=== PATIENT | male | born 2000 | race Caucasian/White ===

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

== ENCOUNTER → 2020-09-18 07:05 | Outpatient (CLI) | payer OTHER, SELFPAY ==
--- NOTE | ~2020-09-18 | XR_ITS ---
XR lumbar spine 2-3V DATE: 09/18/2020 07:24 INDICATION: Low back pain TECHNIQUE: AP, lateral, coned lateral lumbosacral views COMPARISON: None FINDINGS: The lumbar vertebrae are normally aligned. Included lower thoracic and lumbar pedicles are intact. No fracture or bone destruction. Lumbar levels sacral interspaces are well preserved. No spon dylolisthesis. Normal sacroiliac joints. IMPRESSION: Normal lumbar spine Reviewed, dictated and finalized at location A. SWITCHER IMPRESSION: Normal lumbar spine
--- NOTE | ~2020-09-18 | XR_ITS ---
XR knee RT 3V DATE: 09/18/2020 07:25 INDICATION: Right knee pain TECHNIQUE: Koppel and standing AP and lateral views COMPARISON: None FINDINGS: No fracture or dislocation or joint effusion. No periosteal reaction or bone destruction, r adiopaque intra-articular loose body or chondrocalcinosis. Joint spaces are well preserved. IMPRESSION: Normal examination Reviewed, dictated and finalized at location A. O SCRIPT WRITER IMPRESSION: Normal examination
== END ==
PROVIDERS: PCP Family Medicine; Visit Provider Physician Assistant
DX: M54.5 Low back pain (principal); R42 Dizziness and giddiness; R51.9 Headache, unspecified; M25.561 Pain in right knee
CPT/HCPCS: 72100; 73562

== ENCOUNTER 2020-11-23 08:35 | Outpatient (CLI) | payer OTHER, SELFPAY | END 2020-11-23 08:36 | disposition home or self-care (01) | LOC: ANHCOVIDVC 08:36 | PROVIDERS: PCP Family Medicine | DX: Z23 Encounter for immunization (principal) | CPT/HCPCS: 0001A; 91300 ==

== ENCOUNTER 2020-12-14 08:23 | Outpatient (CLI) | payer OTHER, SELFPAY | END 2020-12-14 08:24 | disposition home or self-care (01) | LOC: ANHCOVIDVC 08:24 | PROVIDERS: PCP Family Medicine | DX: Z23 Encounter for immunization (principal) | CPT/HCPCS: 0002A; 91300 ==

== ENCOUNTER 2021-02-09 09:02 | Outpatient (CLI) | payer OTHER, SELFPAY ==
[2021-02-09 09:22] LABS: Basophils Percent Auto 0.4 % (0.2-1.2); Eosinophils Absolute Auto 0.1 K/mm3 (0-0.3); Eosinophils Percent Auto 1.2 % (0-4.4); Hemoglobin 14.7 g/dL (14.0-18.0); Immature Granulocyte Absolute 0.01 K/mm3 (0.00-0.031); Immature Granulocyte Percent A 0.1 % (0-0.5); Lymphocytes Absolute Auto 2.58 K/mm3 (0.9-3.2); Lymphocytes Percent Auto 34.8 % (18.3-44.2); Mean Corpuscular HGB Conc 32.7 g/dl (32-36); Mean Corpuscular Hemoglobin 28.5 pg (26-34); Mean Corpuscular Volume 87.2 fl (80-100); Mean Platelet Volume 10.6 fl (7.4-10.4); Monocytes Absolute Auto 0.6 K/mm3 (0.1-0.6); Monocytes Percent Auto 8.1 % (2.6-8.5); Neutrophils Absolute Auto 4.1 K/mm3 (1.3-6.7); Neutrophils Percent Auto 55.4 % (45.5-73.1); Platelet Count Result 225 k/mm3 (150-375); Red Blood Count 5.16 M/mm3 (4.6-6.20); Red Cell Distribution Width 12.5 % (11.5-14.5); White Blood Count 7.4 K/mm3 (4.5-10.0)
[2021-02-09 09:34] LABS: Alanine Aminotransferase 25 U/L (4-50); Alkaline Phosphatase 69 U/L (38-126); Anion Gap 10 mmol/L (8-16); Aspartate Amino Transferase 33 U/L (17-59); Bilirubin,Total 0.6 mg/dL (0.2-1.3); Blood Urea Nitrogen 15 mg/dL (9-20); CRP < 0.5 mg/dL (<1.0); Calcium 9.9 mg/dL (8.4-10.2); Carbon Dioxide 27 mmol/L (22-30); Chloride 104 mmol/L (98-107); Cholesterol 158 mg/dL (0-200); Estimated Glomerular Filt Rate > 60; Glucose 96 mg/dL (75-110); HDL Direct 31 mg/dL; Potassium 4.1 mmol/L (3.4-5.0); Sodium 141 mmol/L (137-145); Triglycerides 122 mg/dL (<150)
[2021-02-09 09:43] LABS: LDL Cholesterol Direct 88 mg/dL
[2021-02-09 10:14] LABS: Erythrocyte Sedimentation Rate 11 mm/hr (0-20)
[2021-02-12 18:59] LABS: ANA Cascade Screen Negative (Negative)
== END 2021-02-09 09:03 | disposition home or self-care (01) ==
PROVIDERS: PCP Family Medicine; Visit Provider Physician Assistant
DX: R42 Dizziness and giddiness (principal); M54.5 Low back pain; R51.9 Headache, unspecified
CPT/HCPCS: 36415; 80053; 80061; 84443; 85025; 85652; 86038; 86140

== ENCOUNTER → 2021-07-27 10:10 | Outpatient (CLI) | payer OTHER, SELFPAY ==
--- NOTE | ~2021-07-27 | XR_ITS ---
EXAMINATION: XR hand LT min 3V EXAM DATE: 07/27/2021 10:57 INDICATION: S69.92XA - Unspecified injury of left wrist, hand and finger. Jamming injury ec ; pain and swelling at 5th digit, no previous fx or surgery. TECHNIQUE: Left hand frontal, lateral and oblique projections obtained and reviewed. There is no sara or study for comparison. FINDINGS: Left metacarpal bones are unremarkable. There is acute closed posttraumatic nondisplaced fracture at the left 5th middle phalangeal volar plate. This finding has been indicated, marked on examination for review, clinical correlation. No other suspicious findings. IMPRESSION: Left 5th middle phalangeal volar plate nondisplaced avulsion fracture. Reviewed, dictated and finalized at location A. TREASURER IMPRESSION: Left 5th middle phalangeal volar plate nondisplaced avulsion fract ure.
== END ==
PROVIDERS: PCP Family Medicine; Visit Provider Family Medicine
DX: S69.92XA Unspecified injury of left wrist, hand and finger(s), initial encounter (principal); S62.92XA Unspecified fracture of left hand, initial encounter for closed fracture
CPT/HCPCS: 73130

== ENCOUNTER → 2021-08-03 10:05 | Outpatient (CLI) | payer OTHER, SELFPAY ==
--- NOTE | ~2021-08-03 | XR_ITS ---
XR hand LT min 3V 08/03/2021 10:23 Indication: Left hand pain Procedure: 3 views left hand Comparison: 07/27/2021 Findings: There is a volar plate avulsion fracture involving the ventral base fifth middle phalanx. T here is anatomic alignment. No significant soft tissue abnormality. No foreign bodies. Impression: 1: Volar plate avulsion fracture ventral base left fifth middle phalanx. Reviewed, dictated and finalized at location A. SPORTATION MODELER Impression: 1: Volar plate avulsion fracture ventral base left fifth middle phalanx.
== END ==
PROVIDERS: PCP Family Medicine; Visit Provider Family Medicine
DX: S62.627A Displaced fracture of middle phalanx of left little finger, initial encounter for closed fracture (principal)
CPT/HCPCS: 73130

== ENCOUNTER 2022-10-25 07:54 | Outpatient (CLI) | payer OTHER, SELFPAY ==
[2022-10-25 08:14] LABS: Basophils Percent Auto 0.7 % (0.2-1.2); Eosinophils Absolute Auto 0.2 K/mm3 (0-0.3); Eosinophils Percent Auto 2.7 % (0-4.4); Hematocrit 41.5 % (42.0-52.0); Hemoglobin 14.3 g/dL (14.0-18.0); Immature Granulocyte Absolute 0.01 K/mm3 (0.00-0.031); Immature Granulocyte Percent A 0.2 % (0-0.5); Lymphocytes Absolute Auto 2.49 K/mm3 (0.9-3.2); Lymphocytes Percent Auto 41.4 % (18.3-44.2); Mean Corpuscular HGB Conc 34.5 g/dl (32-36); Mean Corpuscular Hemoglobin 30.4 pg (26-34); Mean Corpuscular Volume 88.3 fl (80-100); Mean Platelet Volume 10.5 fl (7.4-10.4); Monocytes Absolute Auto 0.6 K/mm3 (0.1-0.6); Monocytes Percent Auto 9.5 % (2.6-8.5); Neutrophils Absolute Auto 2.8 K/mm3 (1.3-6.7); Neutrophils Percent Auto 45.5 % (45.5-73.1); Platelet Count Result 214 k/mm3 (150-375); Red Cell Distribution Width 12.4 % (11.5-14.5)
[2022-10-25 08:31] LABS: Alanine Aminotransferase 19 U/L (6-50); Albumin Level 4.9 g/dL (3.5-5.1); Alkaline Phosphatase 66 U/L (38-126); Anion Gap 9 mmol/L (8-16); Aspartate Amino Transferase 25 U/L (17-59); Bilirubin,Total 0.5 mg/dL (0.2-1.3); Blood Urea Nitrogen 11 mg/dL (9-20); Calcium 9.4 mg/dL (8.4-10.2); Carbon Dioxide 27 mmol/L (22-30); Chloride 106 mmol/L (98-107); Estimated Glomerular Filt Rate > 60; Glucose 97 mg/dL (65-110); Potassium 4.4 mmol/L (3.4-5.0); Sodium 142 mmol/L (137-145)
[2022-10-25 08:52] LABS: Erythrocyte Sedimentation Rate 8 mm/hr (0-20)
[2022-10-25 09:23] LABS: Rheumatoid Factor < 8.6 IU/ML (<12)
[2022-10-25 09:43] LABS: Hemoglobin A1C 5.1 % (<5.7)
[2022-10-30 22:38] LABS: Anti Cyclic Citrullinated Pept <16 Units (<20)
[2022-10-31 09:06] LABS: HLA B27 Negative (Negative)
== END 2022-10-25 07:55 | disposition home or self-care (01) ==
PROVIDERS: PCP Family Medicine; Visit Provider Family Medicine
DX: R73.9 Hyperglycemia, unspecified (principal); Z83.3 Family history of diabetes mellitus; R53.83 Other fatigue; G89.29 Other chronic pain; M25.50 Pain in unspecified joint; M54.9 Dorsalgia, unspecified; R42 Dizziness and giddiness; M25.519 Pain in unspecified shoulder
CPT/HCPCS: 36415; 80053; 83036; 85025; 85652; 86038; 86200; 86430; 86812

== ENCOUNTER 2023-10-08 10:57 | Outpatient (CLI) | payer OTHER, SELFPAY ==
[2023-10-08 11:20] LABS: Basophils Absolute Auto 0.1 K/mm3 (0.0-0.1); Basophils Percent Auto 0.5 % (0.2-1.2); Eosinophils Absolute Auto 0.1 K/mm3 (0-0.3); Eosinophils Percent Auto 1.1 % (0-4.4); Hematocrit 44.9 % (42.0-52.0); Hemoglobin 14.4 g/dL (14.0-18.0); Immature Granulocyte Absolute 0.03 K/mm3 (0.00-0.031); Immature Granulocyte Percent A 0.3 % (0-0.5); Lymphocytes Absolute Auto 2.29 K/mm3 (0.9-3.2); Lymphocytes Percent Auto 23.6 % (18.3-44.2); Mean Corpuscular HGB Conc 32.1 g/dl (32-36); Mean Corpuscular Hemoglobin 28.6 pg (26-34); Mean Corpuscular Volume 89.1 fl (80-100); Mean Platelet Volume 9.5 fl (7.4-10.4); Monocytes Absolute Auto 0.8 K/mm3 (0.1-0.6); Monocytes Percent Auto 8.4 % (2.6-8.5); Neutrophils Absolute Auto 6.4 K/mm3 (1.3-6.7); Neutrophils Percent Auto 66.1 % (45.5-73.1); Platelet Count Result 283 k/mm3 (150-375); Red Blood Count 5.04 M/mm3 (4.6-6.20); White Blood Count 9.7 K/mm3 (4.5-10.0)
[2023-10-08 11:33] LABS: Alanine Aminotransferase 16 U/L (6-50); Albumin Level 4.8 g/dL (3.5-5.1); Alkaline Phosphatase 63 U/L (38-126); Anion Gap 10 mmol/L (8-16); Aspartate Amino Transferase 26 U/L (17-59); Bilirubin,Total 0.7 mg/dL (0.2-1.3); Blood Urea Nitrogen 7 mg/dL (9-20); Calcium 9.9 mg/dL (8.4-10.2); Carbon Dioxide 28 mmol/L (22-30); Chloride 102 mmol/L (98-107); Estimated Glomerular Filt Rate > 60; Glucose 73 mg/dL (65-110); Potassium 3.9 mmol/L (3.4-5.0); Sodium 140 mmol/L (137-145)
[2023-10-08 12:11] LABS: Erythrocyte Sedimentation Rate 19 mm/hr (0-20)
[2023-10-08 12:16] LABS: Iron 98 ug/dL (49-181)
[2023-10-08 12:26] LABS: Percent Iron Saturation 28 % (20-50)
[2023-10-08 12:56] LABS: Thyroid Stimulating Hormone Reflex 0.917 uIU/mL (0.465-4.68)
== END 2023-10-08 10:58 | disposition home or self-care (01) ==
LOC: ANHLAB 11:00
PROVIDERS: PCP Family Medicine; Visit Provider Family Medicine
DX: R53.83 Other fatigue (principal); M46.1 Sacroiliitis, not elsewhere classified; M25.50 Pain in unspecified joint; K92.1 Melena
CPT/HCPCS: 36415; 80053; 82728; 83540; 83550; 84443; 85025; 85652

== ENCOUNTER 2024-04-13 13:56 | Outpatient (CLI) | payer OTHER, SELFPAY ==
--- NOTE | ~2024-04-13 | XR_ITS ---
Clinical Indication: Lower respiratory infection PA and lateral views of the chest: Comparison: 12/08/2019 Findings: The lungs are clear, without evidence of focal consolidation or pleural effusion. Cardiome diastinal silhouette is within normal limits. Bones and soft tissues are unremarkable. Impression: Normal chest. Reviewed, dictated and finalized at [facility]. Impression: Normal chest.
== END 2024-04-13 13:57 ==
PROVIDERS: PCP Family Medicine; Visit Provider Family Medicine
DX: J22 Unspecified acute lower respiratory infection (principal)
CPT/HCPCS: 71046

== ENCOUNTER 2024-04-13 15:15 | Outpatient (CLI) | payer OTHER, SELFPAY ==
[2024-04-13 16:07] LABS: Influenza A QL RT-PCR Negative (Negative); Influenza B QL RT-PCR Negative (Negative); RSV RNA, RT-PCR Negative (Negative); SARS-CoV-2 RNA PCR Negative (Negative)
== END 2024-04-13 15:16 | disposition home or self-care (01) ==
LOC: ANHLAB 15:18
PROVIDERS: PCP Family Medicine; Visit Provider Family Medicine
DX: R05.9 Cough, unspecified (principal); Z20.822 Contact with and (suspected) exposure to COVID-19
CPT/HCPCS: 87637

== ENCOUNTER 2025-02-25 07:55 | Outpatient (CLI) | payer OTHER, SELFPAY ==
--- OUTSIDE RECORDS SUMMARY | 2025-02-25 07:58 | XMS_ITS | Clinical Summary ---
Author Organization [facility] Address [facility] [place] [address] Care Team Providers Care Home Health Provider Name Role Phone Ashanti Price MD Primary Care Provider [phone] Allergies No known active allergies Medications meloxicam (MOBIC) 15 mg tablet 1 Active SUMAtriptan (IMITREX) 100 mg tablet 0 Active loratadine (CLARITIN) 10 mg tablet Take 10 mg by mouth daily Active cyclobenzaprine (FLEXERIL) 10 mg tablet Take 10 mg by mouth 3 (three) times a day as needed for muscle spasms Active acetaminophen (TYLENOL) 500 mg tablet Take 500 mg by mouth every 6 (six) hours as needed for pain Active menthol 4 % gel Apply topically Active celecoxib (CeleBREX) 200 mg capsule 1 Active montelukast (SINGULAIR) 10 mg tablet 1 Active tiZANidine (ZANAFLEX) 4 mg tablet 1 Active ofloxacin (FLOXIN) 0.3 % otic solution 3 Active Active Problems Problem Noted Date Diagnosed Date Low back pain, non-specific 10/25/2020 Surgical History Surgery Date Site/Laterality Comments NO PAST SURGERIES FLUORO GUIDED ASPIRATION OR INJECTION LARGE JOINT BILATERAL 04/02/2021 Bilateral IR INJECTION ARTHROGRAM SI J OINT LEFT INCLUDES IMAGING GUIDANCE 06/18/2021 Left IR INJECTION ARTHROGRAM SI J OINT BILATERAL WITH GUIDANCE 04/07/2023 Bilateral Medical History Medical History Date Comments Asthma Migraine Family History Medical History Relation Name Comments Asthma Brother Diabetes Father Hypertension Father Hypertension Maternal Grandfather Hypothyroidism Maternal Grandfather Seizures Maternal Grandmother Hypertension Mother Migraines Mother Dementia Paternal Grandfather Diabetes Paternal Grandfather Hypertension Paternal Grandmother Asthma Sister Relation Name Status Comments Brother Father Maternal Grandfather Maternal Grandmother Mother Paternal Grandfather Paternal Grandmother Sister Social History Tobacco Use Types Packs/Day Years Used Date Smoking Tobacco: Never Smokeless Tobacco: Never Personal Safety Answer Date Recorded Getting School Help Needed Not on file 10/11 Sex and Gender Information Value Date Recorded Sex Assigned at Not on file Legal Sex Male 2:15 AM GYM INSTRUCTOR Gender Identity Male 03/28/2023 10:32 AM CDT Sexual Orientation Not on file Obstetrics History Last Filed Vital Signs Vital Sign Reading Time Taken Comments Blood Pressure 122/76 12/24/2020 4:32 PM CDT Pulse 93 10/25/2020 12:46 PM GYM INSTRUCTOR Temperature - - Respiratory Rate - - Oxygen Saturation - - Inhaled Oxygen Concentration - - Weight 90.7 kg (200 lb) 10/25/2020 12:46 PM GYM INSTRUCTOR Height 182.9 cm (6') 10/25/2020 12:46 PM GYM INSTRUCTOR Body Mass Index 27.12 10/25/2020 12:46 PM GYM INSTRUCTOR Plan of Treatment Health Maintenance Due Date Last Done Comments Depression Screening 2000 Hepatitis C Screening 2000 DTaP/Tdap/Td Vaccine (1 - Tdap) 2011 Varicella Vaccines (1 of 2 - 13+ 2-dose series) 2013 HPV Vaccines (1 - Male 3-dos e series) 2015 Hepatitis B Screening 2018 Regular Well Visit/Exam 18-64 2018 Influenza Vaccine (Season Ended) 2025 06/06/2020, 05/30/2019 Pneumococcal vaccine <65 Aged Out No longer eligible based on patient's age to complete this topic Insurance [facility] Care Teams Home Health Provider Relationship Specialty Start Date End Date Ashanti Price MD [address] [place] [phone] PCP - General Family Medicine 10/09/20
--- OUTSIDE RECORDS SUMMARY | 2025-02-25 07:58 | XMS_ITS | Referral Summary ---
Author Organization [facility] Address [facility] [place] [address] Care Team Providers Care Women'S Soccer Coach Name Role Phone Ashanti Price MD Primary Care Provider [phone] Allergies No known active allergies Medications meloxicam [...] Diagnosed Date Low back pain, non-specific 10/25/2020 Social History Tobacco Use Types Packs/Day Years Used Date Smoking Tobacco: Never Smokeless Tobacco: Never Personal Safety Answer Date Recorded Getting School Help Needed Not on file 10/11 Sex and Gender Information Value Date Recorded Sex Assigned at Not on file Legal Sex Male 2:15 AM AIRLINE PILOT Gender Identity Male 03/28/2023 10:32 AM CDT Sexual Orientation Not on file Last Filed Vital Signs Vital Sign Reading Time Taken Comments Blood Pressure 122/76 12/24/2020 4:32 PM CDT Pulse 93 10/25/2020 12:46 PM AIRLINE PILOT Temperature - - Respiratory Rate - - Oxygen Saturation - - Inhaled Oxygen Concentration - - Weight 90.7 kg (200 lb) 10/25/2020 12:46 PM AIRLINE PILOT Height 182.9 cm (6') 10/25/2020 12:46 PM AIRLINE PILOT Body Mass Index 27.12 10/25/2020 12:46 PM AIRLINE PILOT Plan of Treatment Not on file Insurance [facility] Care Teams Women'S Soccer Coach Relationship Specialty Start Date End Date Ashanti Price MD [address] [place] [address] PCP - General Family Medicine 10/09/20
[2025-02-25 08:40] LABS: Hematocrit 42.1 % (42.0-52.0); Hemoglobin 14.0 g/dL (14.0-18.0); Immature Granulocyte Percent A 0.3 % (0-0.5); Lymphocytes Absolute Auto 2.59 K/mm3 (0.9-3.2); Mean Corpuscular HGB Conc 33.3 g/dl (32-36); Mean Corpuscular Hemoglobin 28.8 pg (26-34); Mean Corpuscular Volume 86.6 fl (80-100); Nucleated Red Blood Cells Absolute Auto 0.000 K/mm3 (0.0-0.012); Nucleated Red Blood Cells Perc 0.0 % (0.0-0.2); Platelet Count Result 257 k/mm3 (150-375); Red Blood Count 4.86 M/mm3 (4.6-6.20); White Blood Count 9.6 K/mm3 (4.5-10.0)
[2025-02-25 08:56] LABS: Alanine Aminotransferase 17 U/L (6-50); Albumin Level 4.8 g/dL (3.5-5.1); Alkaline Phosphatase 77 U/L (38-126); Anion Gap 12 mmol/L (4-12); Aspartate Amino Transferase 32 U/L (17-59); Bilirubin,Total 0.5 mg/dL (0.2-1.3); Blood Urea Nitrogen 7 mg/dL (9-20); Calcium 9.2 mg/dL (8.4-10.2); Carbon Dioxide 24 mmol/L (22-30); Chloride 98 mmol/L (98-107); Cholesterol 212 mg/dL (0-200); Estimated Glomerular Filt Rate > 60; Glucose 93 mg/dL (65-110); HDL Direct 43 mg/dL; Potassium 4.1 mmol/L (3.4-5.0); Sodium 134 mmol/L (137-145); Total Protein 8.0 g/dL (6.3-8.2); Triglycerides 122 mg/dL (<150)
[2025-02-25 09:26] LABS: Hemoglobin A1C 5.3 % (<5.7)
[2025-02-25 09:31] LABS: Thyroid Stimulating Hormone 1.830 uIU/mL (0.465-4.680)
== END 2025-02-25 07:56 | disposition home or self-care (01) ==
LOC: ANHLAB 07:57
PROVIDERS: PCP Family Medicine; Visit Provider Student in an Organized Health Care Education/Training Program
DX: E66.3 Overweight (principal); Z13.220 Encounter for screening for lipoid disorders; Z13.0 Encounter for screening for diseases of the blood and blood-forming organs and certain disorders involving the immune mechanism; Z83.3 Family history of diabetes mellitus
CPT/HCPCS: 36415; 80053; 80061; 83036; 84443; 85025